=== PATIENT | male | born 1970 | race Caucasian/White ===

== ENCOUNTER → 2017-03-30 | Outpatient (CLI) | payer OTHER | LOC: LAB 12:10 | PROVIDERS: ATTEND Internal Medicine Pulmonary Disease | DX: R56.9 Unspecified convulsions (principal) | CPT/HCPCS: 36415; 80185 ==

== ENCOUNTER 2017-04-17 19:00 | Emergency (ER) | payer OTHER ==
[2017-04-17 19:48] LABS: ABSOLUTE LYMPHOCYTES (AUTO) 1.1 10^3/uL (0.5-4.7); ABSOLUTE NEUT (AUTO) 12.6 10^3/uL (1.7-8.2); BASOPHILS % (AUTO) 0.1 % (0-2); HEMATOCRIT 37.3 % (37.9-51.0); HEMOGLOBIN 12.8 g/dL (13.5-17.0); LYMPHOCYTES % (AUTO) 7.2 % (13-45); MEAN CORPUSCULAR HEMOGLOBIN 34.1 pg (27.0-33.4); MEAN CORPUSCULAR HGB CONC 34.5 g/dL (32.0-36.0); MEAN CORPUSCULAR VOLUME 99 fl (80-97); MONOCYTES % (AUTO) 12.5 % (3-13); PLATELET COUNT 276 10^3/uL (150-450); RED BLOOD COUNT 3.77 10^6/uL (4.35-5.55); RED CELL DISTRIBUTION WIDTH 12.3 % (11.5-14.0); SEGMENTED NEUTROPHILS % (AUTO) 80.2 % (42-78); TOTAL CELLS COUNTED % (AUTO) 100 %; WHITE BLOOD COUNT 15.7 10^3/uL (4.0-10.5)
[2017-04-17] MEDS ORDERED: TRAZODONE HCL 50 MG TABLET PO ONE (19:56)
--- NOTE | 2017-04-17 19:56 | ER Document Report ---
ED General - General Chief Complaint: Suicidal Ideation Stated Complaint: SUICIDAL IDEATION Time Seen by Provider: 04/17/17 19:38 Notes: Patient is a 46-year-old male with past medical history of depression currently untreated who presents with suicidal ideation. Patient went to the police department tonight and reported that he was thinking about killing himself and was subsequently transported to the emergency department. Patient reports that he found that his girlfriend is cheating on him which prompted him to want to kill himself. He reports a long-standing history of depression ever since his in 2012. He states he was prescribed Prozac in the past but discontinued this medication on his own approximately a year ago as he did not believe it was helping his symptoms. He has not made any attempt to harm himself today. He denies any homicidal ideation. He is not currently following with any mental health care provider resources. He denies any acute medical concerns. He admits to drinking heavily yesterday but denies any alcohol use today. TRAVEL OUTSIDE OF THE [place] IN LAST 30 DAYS: No - Related Data Allergies/Adverse Reactions: aspirin [Aspirin] Allergy (Verified 04/17/17 19:09) codeine [Codeine] Allergy (Verified 04/17/17 19:09) ibuprofen Allergy (Verified 04/17/17 19:09) Past Medical History - General Information source: Patient - Social History Smoking Status: Current Every Day Smoker Frequency of alcohol use: Heavy Drug Abuse: None Family History: Reviewed & Not Pertinent Patient has suicidal ideation: Yes Patient has homicidal ideation: No - Past Medical History Cardiac Medical History: Reports: Hx Hypertension Neurological Medical History: Reports: Hx Seizures Renal/ Medical History: Denies: Hx Peritoneal Dialysis Psychiatric Medical History: Reports: Hx Depression - Immunizations Hx Diphtheria, Pertussis, Tetanus Vaccination: No Review of Systems - Review of Systems Notes: Constitutional: Negative for fever. HENT: Negative for sore throat. Eyes: Negative for visual changes. Cardiovascular: Negative for chest pain. Respiratory: Negative for shortness of breath. Gastrointestinal: Negative for abdominal pain, vomiting or diarrhea. Genitourinary: Negative for dysuria. Musculoskeletal: Negative for back pain. Skin: Negative for rash. Neurological: Negative for headaches, weakness or numbness. 10 point ROS negative except as marked above and in HPI. Physical Exam - Vital signs Interpretation: Normal Notes: PHYSICAL EXAMINATION: GENERAL: Well-appearing, well-nourished and in no acute distress. HEAD: Atraumatic, normocephalic. EYES: Pupils equal round and reactive to light, extraocular movements intact, sclera anicteric, conjunctiva are normal. ENT: nares patent, oropharynx clear without exudates. Moist mucous membranes. NECK: Normal range of motion, supple without lymphadenopathy LUNGS: Breath sounds clear to auscultation bilaterally and equal. No wheezes rales or rhonchi. HEART: Regular rate and rhythm without murmurs ABDOMEN: Soft, nontender, normoactive bowel sounds. No guarding, no rebound. No masses appreciated. EXTREMITIES: Normal range of motion, no pitting or edema. No cyanosis. NEUROLOGICAL: No focal neurological deficits. Moves all extremities spontaneously and on command. PSYCH: Somewhat anxious, depressed mood. Endorsing active suicidal ideation SKIN: Warm, Dry, normal turgor, no rashes or lesions noted. Course - Re-evaluation Re-evalutation: 04/17/17 19:49 Patient presents with suicidal ideation with a plan to kill himself by hitting a shotgun shell with a hammer while it is in his mouth. Patient states he wants to and would choose to right now if he had a painless mechanism to do this by. Patient is very high risk for completion as he has no social supports , no follow-up, a plan with a lethal mechanism, and a known history of depression that is not currently being treated. I placed the patient under involuntary commitment as I do not believe he is safe for discharge and believe he will likely require inpatient hospitalization. Medical screening examination is unremarkable and he is cleared for evaluation by psychiatry. - Laboratory Result Diagrams: 04/17/17 19:30 04/17/17 19:30 Laboratory results interpreted by me: 04/17/17 04/17/17 04/17/17 19:30 19:30 19:30 WBC 15.7 H RBC 3.77 L Hgb 12.8 L Hct 37.3 L MCV 99 H MCH 34.1 H Seg Neutrophils % 80.2 H Lymphocytes % 7.2 L Absolute Neutrophils 12.6 H Absolute Monocytes 2.0 H AST 85 H ALT 74 H Urine Protein 30 H Urine Ketones TRACE H Urine Blood SMALL H Salicylates < 1.0 L Acetaminophen < 10 L - EKG Interpretation by Me Additional EKG results interpreted by me: 04/18/17 03:46 Sinus tachycardia. Rate 109. No ST elevations or depressions. QTC is 480. Discharge - Discharge Clinical Impression: Suicidal ideation Depression Qualifiers: Depression Type: unspecified Qualified Code(s): F32.9 - Major depressive disorder, single episode, unspecified Disposition: PSYCH HOSP/UNIT
[2017-04-17 20:02] LABS: ALANINE AMINOTRANSFERASE 74 U/L (21-72); ALBUMIN 4.3 g/dL (3.5-5.0); ALKALINE PHOSPHATASE 114 U/L (38-126); ANION GAP 18 (5-19); ASPARTATE AMINO TRANSFERASE 85 U/L (17-59); BILIRUBIN,DIRECT 0.1 mg/dL (0.0-0.4); BILIRUBIN,TOTAL 0.4 mg/dL (0.2-1.3); BLOOD UREA NITROGEN 18 mg/dL (7-20); CALCIUM 9.6 mg/dL (8.4-10.2); CARBON DIOXIDE 23 mmol/L (22-30); CHLORIDE 98 mmol/L (98-107); GLUCOSE 91 mg/dL (75-110); SODIUM 138.9 mmol/L (137-145); TOTAL PROTEIN 6.5 g/dL (6.3-8.2)
[2017-04-17 20:04] LABS: ACETAMINOPHEN < 10 ug/mL (10-30); ALCOHOL < 10 mg/dL (NONE DETECTED); SALICYLATE < 1.0 mg/dL (2.0-20.0)
[2017-04-17 20:07] LABS: APPEARANCE,URINE SLIGHTLY-CLOUDY; BILIRUBIN,URINE NEGATIVE (NEGATIVE); COLOR,URINE YELLOW; GLUCOSE, URINE NEGATIVE (NEGATIVE); KETONES,URINE TRACE mg/dL (NEGATIVE); LEUKOCYTE ESTERASE,URINE NEGATIVE (NEGATIVE); NITRITE,URINE NEGATIVE (NEGATIVE); PROTEIN,URINE 30 mg/dL (NEGATIVE); URINE SPECIFIC GRAVITY 1.032; UROBILINOGEN,URINE NEGATIVE mg/dL (<2.0)
[2017-04-17 20:21] LABS: URINE AMPHETAMINES SCREEN NEGATIVE; URINE BARBITURATES SCREEN NEGATIVE; URINE BENZODIAZEPINES SCREEN NEGATIVE; URINE COCAINE SCREEN NEGATIVE; URINE MARIJUANA (THC) SCREEN NEGATIVE; URINE METHADONE SCREEN NEGATIVE; URINE PHENCYCLIDINE SCREEN NEGATIVE
--- NOTE | 2017-04-18 08:00 | EKG REPORT ---
SEVERITY:- ABNORMAL ECG - SINUS TACHYCARDIA PROBABLE LEFT ATRIAL ABNORMALITY NONSPECIFIC T ABNORMALITIES, LATERAL LEADS BORDERLINE PROLONGED QT INTERVAL : Confirmed by: Sandra Patrick MD 18-Apr-2017 07:58:55
--- NOTE | 2017-04-18 12:40 | ER Document Report ---
ED General - General Chief Complaint: Suicidal Ideation Stated Complaint: SUICIDAL IDEATION Time Seen by Provider: 04/17/17 19:38 TRAVEL OUTSIDE OF THE [place] IN LAST 30 DAYS: No - Related Data Allergies/Adverse Reactions: aspirin [Aspirin] Allergy (Verified 04/17/17 19:09) codeine [Codeine] Allergy (Verified 04/17/17 19:09) ibuprofen Allergy (Verified 04/17/17 19:09) Home Medications: Current Home Medications No Home Medications 04/18/17 [History] Past Medical History - General Information source: Patient - Social History Smoking Status: Current Every Day Smoker Frequency of alcohol use: Heavy Drug Abuse: None Family History: Reviewed & Not Pertinent Patient has suicidal ideation: Yes Patient has homicidal ideation: No - Past Medical History Cardiac Medical History: Reports: Hx Hypertension Neurological Medical History: Reports: Hx Seizures Renal/ Medical History: Denies: Hx Peritoneal Dialysis Psychiatric Medical History: Reports: Hx Depression - Immunizations Hx Diphtheria, Pertussis, Tetanus Vaccination: No Physical Exam - Vital signs Vitals: Temp Pulse Resp BP Pulse Ox 98.2 F 75 16 136/77 H 99 04/18/17 05:51 04/18/17 05:51 04/18/17 05:51 04/18/17 05:51 04/18/17 05:51 Course - Re-evaluation Re-evalutation: 04/18/17 13:04 Assessed patient at 1 PM. Still actively suicidal and wants to blow up a shotgun shell in his mouth. Mental health is seen him and come up with an outpatient plan but I still feel he should be transferred to an inpatient facility. - Vital Signs Vital signs: Temp Pulse Resp BP Pulse Ox 98.2 F 75 16 136/77 H 99 04/18/17 05:51 04/18/17 05:51 04/18/17 05:51 04/18/17 05:51 04/18/17 05:51 - Laboratory Result Diagrams: 04/17/17 19:30 04/17/17 19:30 Laboratory results interpreted by me: 04/17/17 04/17/17 04/17/17 19:30 19:30 19:30 WBC 15.7 H RBC 3.77 L Hgb 12.8 L Hct 37.3 L MCV 99 H MCH 34.1 H Seg Neutrophils % 80.2 H Lymphocytes % 7.2 L Absolute Neutrophils 12.6 H Absolute Monocytes 2.0 H AST 85 H ALT 74 H Urine Protein 30 H Urine Ketones TRACE H Urine Blood SMALL H Salicylates < 1.0 L Acetaminophen < 10 L Discharge - Discharge Clinical Impression: Suicidal ideation Depression Qualifiers: Depression Type: unspecified Qualified Code(s): F32.9 - Major depressive disorder, single episode, unspecified Condition: Good Disposition: HOME, SELF-CARE
--- NOTE | 2017-04-18 12:41 | PSYCHOLOGICAL NOTE ---
Psych Note - Psych Note Psych Note: * Reason for consult: Suicidal ideation placed under IVC by attending evening physician * Consent permissions: none given Pt to ED via EMS, states he has been suicidal thought d/t girlfriend is cheating on him, states plan to but bullet in mouth and hit with hammer to kill self d/t not having access to gun, pt reports [facility]x of [facility]t depression. She reports that he walked to the police department and told them that he wanted to ; SHILPI called EMS to transport him to [facility] ED. Patient states "I just do not have anything in life or any one to live for." Patient states " this is been coming on for a long time." Patient disclosed "I lost my , I lost my mother, I lost my sister and just found out yesterday my girl friend was cheating on me." His mother and , his sister moved to [place]. Patient continued to report "I was not with anybody for a long time and the first girl I am with cheats on me." Patient disclosed he thought about jumping in front of a car; however, "I just want to hurt myself, I do not want to hurt or ruin anyone else's life." He continued to disclose that he is "scared of hurting" so decided his plan would be to get a box of shotgun shells , put a bullet in his mouth and hit it with a hammer; 'it would just create an explosion and end quickly." Patient was asked if he was afraid of hurting, what would happen if he missed with a hammer? He stated "well, I guess I would just try again .... 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 He reports that he attempted to harm himself about 5 years ago by cutting himself; clinician observes curved scar on inner left wrist. Patient states that he is diagnosed with major depression and was taking Prozac however stopped taking the medication about a year ago because "I did not think I needed it." Patient does not have an outpatient provider and states that he moved to [place] 1 week ago from [place] to be with his girlfriend. Patient states that he does have a history of alcohol abuse but "weaned" himself off of it. When patient asked if he had a place to stay he stated "I live in [place]." Patient states he is currently unemployed and is still waiting on his disability to get approved. 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 Chart review conducted: Patient received psychological evaluation on 09/02/2015 and disclosed the same stressors and trigger event he reported to clinician during todays evaluations. " Patient reports a lot of stressors in the last year to include losing his mother and his around 3 years ago. Patient reports that he was very dependent on his sister, whom moved to another state a month ago. Patient reports that on top of this, his supposed girlfriend had been cheating on him." Patient was asked about stressors and trigger he disclosed during his 2015 being identical to today's [facility] visit. Patient confirms stating, "I had a repeat year." Patient continued to confirm that it is the same girl friend from a year and a half ago. Patient agrees he needs to start medication and receive psychotherapy to learn coping skills. He reports he did follow up shortly after being discharged from [facility] for a few months. Patient is alert and orientated to person place time and circumstance. Mood is euthymic with congruent affect. Patient openly engages with clinician. Patient endorses parasuicidal ideation with a nonfatal, unrealistic plan to accomplish. Patient denies homicidal ideation. Delusions are absent behaviors congruent with intact reality based presentation i.e. organized, linear, rational thinking. Eye contact was fair. Conversational speech was within normal rate, tone and prosody. Intellectual abilities appear to be within the average range. Attention and concentration are good. Insight, judgment, impulse control are good as evidenced by patient reaching out for assistance ( i.e. going to the police station for help, coming to [facility] ED for continued assistance). 296.30 (F 33.9) major depressive disorder; recurrent episode; unspecified Impression/plan: Patient is recommended to rescind IVC. Patient endorses parasuicidal ideation with a nonfatal, unrealistic plan to accomplish (putting a shotgun shell in his mouth and hitting it with a hammer). He also states that he is "scared of hurting" which is why he came up with this plan (patient' s disclosed plan is in direct conflict with being pain free). Additionally, this appears to be a chronic issue, he received psychological evaluation on and disclosed the same stressors and trigger event he reported to clinician during today's evaluations. Patient went inpatient to [facility] after the first report and did not continue to follow up with outpatient treatment nor continue prescribed medication. Patient did demonstrate good judgment and impulse control because the patient reached out for assistance for his thoughts and feelings by going to the police station to ask for help and following through with coming to [facility] ED for continued assistance. Inpatient treatment would not be appropriate for this patient, he needs to learn coping skills through psychotherapy for his chronic stressors. The Behavior Health Team provided recommendations for medication and the patient is recommended to follow up with outpatient mental health services. Dr. Mcdonald was consulted and the care and management of this patient. Attending physician is not in agreement with recommendations.
[2017-04-18] MEDS: HYDROXYZINE HCL 10 MG TABLET PO PRN ×2 (13:29→21:07)
[2017-04-19 09:27] VITALS: BP 130/70
--- NOTE | 2017-04-19 09:48 | ER Document Report ---
ED General - General Chief Complaint: Suicidal Ideation Stated Complaint: SUICIDAL IDEATION Time Seen by Provider: 04/17/17 19:38 TRAVEL OUTSIDE OF THE U.S. IN LAST 30 DAYS: No - Related Data Allergies/Adverse Reactions: aspirin [Aspirin] Allergy (Verified 04/17/17 19:09) codeine [Codeine] Allergy (Verified 04/17/17 19:09) ibuprofen Allergy (Verified 04/17/17 19:09) Home Medications: Current Home Medications No Home Medications 04/18/17 [History] Past Medical History - General Information source: Patient - Social History Smoking Status: Current Every Day Smoker Frequency of alcohol use: Heavy Drug Abuse: None Family History: Reviewed & Not Pertinent Patient has suicidal ideation: Yes Patient has homicidal ideation: No - Past Medical History Cardiac Medical History: Reports: Hx Hypertension Neurological Medical History: Reports: Hx Seizures Renal/ Medical History: Denies: Hx Peritoneal Dialysis Psychiatric Medical History: Reports: Hx Depression - Immunizations Hx Diphtheria, Pertussis, Tetanus Vaccination: No Physical Exam - Vital signs Vitals: Temp Pulse Resp BP Pulse Ox 98.2 F 75 16 136/77 H 99 04/18/17 05:51 04/18/17 05:51 04/18/17 05:51 04/18/17 05:51 04/18/17 05:51 Course - Re-evaluation Re-evalutation: 04/19/17 09:47 As the rusting emergency physician I examined this patient. I reviewed the patient's chart. The patient is currently resting comfortably and requires no acute medical intervention. Disposition per psychiatry. - Vital Signs Vital signs: Temp Pulse Resp BP Pulse Ox 98.0 F 72 14 130/70 H 100 04/19/17 09:00 04/19/17 09:00 04/19/17 09:00 04/19/17 09:00 04/19/17 09:00 - Laboratory Result Diagrams: 04/17/17 19:30 04/17/17 19:30 Laboratory results interpreted by me: 04/17/17 04/17/17 04/17/17 19:30 19:30 19:30 WBC 15.7 H RBC 3.77 L Hgb 12.8 L Hct 37.3 L MCV 99 H MCH 34.1 H Seg Neutrophils % 80.2 H Lymphocytes % 7.2 L Absolute Neutrophils 12.6 H Absolute Monocytes 2.0 H AST 85 H ALT 74 H Urine Protein 30 H Urine Ketones TRACE H Urine Blood SMALL H Salicylates < 1.0 L Acetaminophen < 10 L Discharge - Discharge Clinical Impression: Suicidal ideation Depression Qualifiers: Depression Type: unspecified Qualified Code(s): F32.9 - Major depressive disorder, single episode, unspecified Condition: Good Disposition: HOME, SELF-CARE
--- NOTE | 2017-04-19 10:27 | PSYCHOLOGICAL NOTE ---
Psych Note - Psych Note Psych Note: * Reason for consult: Suicidal ideation placed under IVC by attending evening physician * Consent permissions: Addy, Brother Pt to ED via EMS, states he has been suicidal thought d/t girlfriend is cheating on him, states plan to but bullet in mouth and hit with hammer to kill self d/t not having access to gun, pt reports [facility]x of [facility] depression. Conducted a check in with patient: Patient stated he is "feeling better and ready to try." When asked to clarify what he would like to try, he stated "outpatient." Patient denies current suicidal ideation disclosing "I out grew them last night." Patient continued to disclose that his brother was being released from [facility] intermediate today and will be coming to the hospital to "pick me up." Patient was reminded that he can't leave without being recinded and that he is still currently under IVC. Patient confirmed he understood. Patient's brother, Addy, now at patient's bedside. He disclosed that [facility]. He states he lives in [place] however does come to [place] for work every once in a while. He continued to state that his brother and him have always helped each other he plans to get work set up for his brother. Patient stated "he has help me out in the past a lot.... He will keep me right." Patient continues state that he did not realize that his brother was going to be released from intermediate so quickly and is happy to have his support back. Patient's brother and patient confirmed they live only [place] from each other. Addy states he would like to be part of the patient's discharge plan 296.30 (F 33.9) major depressive disorder; recurrent episode; unspecified Impression/plan: Patient is recommended to rescind IVC and is considered psychiatrically clear. Patient endorses parasuicidal ideation with a nonfatal, unrealistic plan to accomplish (putting a shotgun shell in his mouth and hitting it with a hammer). He also states that he is "scared of hurting" which is why he came up with this plan (patient's disclosed plan is in direct conflict with being pain free). Additionally, this appears to be a chronic issue , he received psychological evaluation on 09/02/2015 and disclosed the same stressors and trigger event he reported to clinician during today's evaluations. Patient went inpatient to [facility] after the first report and did not continue to follow up with outpatient treatment nor continue prescribed medication. Patient did demonstrate good judgment and impulse control because the patient reached out for assistance for his thoughts and feelings by going to the police station to ask for help and following through with [facility]. Inpatient treatment would not be appropriate for this patient, he needs to learn coping skills through psychotherapy for his chronic stressors. The Behavior Health Team provided recommendations for medication and the patient is recommended to follow up with outpatient mental health services. Patient has local support with his brother. His brother was unable to support him during the last few days because he was serving time for a [place] however both patient and brother state they support each other. Patient's brother, Addy, would like to be part of patient's discharge plan to ensure patient does not have any access to weapons, parts of weapons (i.e. bullets) and medications and follows up with outpatient mental health services. Dr. Mcdonald was consulted and the care and management of this patient; attending physician is in agreement with recommendations and disposition.
== END 2017-04-19 12:35 | disposition home or self-care (01) ==
LOC: ER 19:00
DX: R45.851 Suicidal ideations (principal); F33.9 Major depressive disorder, recurrent, unspecified; F17.200 Nicotine dependence, unspecified, uncomplicated; I10 Essential (primary) hypertension; Z88.6 Allergy status to analgesic agent
CPT/HCPCS: 93005; 99285; 36415; 80307 ×4; 85025; 80053; 81001; 93010; J3490

== ENCOUNTER 2017-04-21 23:39 | Emergency (ER) | payer MEDICAID, OTHER ==
--- NOTE | 2017-04-21 23:55 | ER Document Report ---
ED Psych Disorder / Suicide - General Chief Complaint: Suicidal Ideation Stated Complaint: SUICIDAL IDEATION Time Seen by Provider: 04/21/17 23:55 Notes: Pt states that he is here because he has thoughts to hurt himself. States that he was released with behavioral health from last Saturday and signed a contract saying that if he wants to hurt himself he needs to check in with the ED. States that he was going to hang himself today and that he has everything at home to do it. States that he even has the tree picked out that he would use. States that he hasn't had his meds filled and this is probably part of the problem. [facility], but he has not picked it up. Patient drank a 40 ounce beer earlier tonight. Denies any suicidal gesture, HI, hallucinations, fevers, headache, nausea or vomiting. TRAVEL OUTSIDE OF THE [place] IN LAST 30 DAYS: No - Related Data Allergies/Adverse Reactions: aspirin [Aspirin] Allergy (Verified 04/21/17 23:39) codeine [Codeine] Allergy (Verified 04/21/17 23:39) ibuprofen Allergy (Verified 04/21/17 23:39) Past Medical History - General Information source: Patient - Social History Smoking Status: Current Every Day Smoker Frequency of alcohol use: Heavy Drug Abuse: None Family History: Reviewed & Not Pertinent - Past Medical History Cardiac Medical History: Reports: Hx Hypertension Neurological Medical History: Reports: Hx Seizures Renal/ Medical History: Denies: Hx Peritoneal Dialysis Psychiatric Medical History: Reports: Hx Depression - Immunizations Hx Diphtheria, Pertussis, Tetanus Vaccination: No Review of Systems - Review of Systems Notes: REVIEW OF SYSTEMS: CONSTITUTIONAL: -fevers, -chills EENT: -eye pain, -difficulty swallowing, -nasal congestion CARDIOVASCULAR:-chest pain, -syncope. RESPIRATORY: -cough, -SOB GASTROINTESTINAL: -abdominal pain, - nausea, -vomiting, -diarrhea GENITOURINARY: -dysuria, -hematuria MUSCULOSKELETAL: -back pain, -neck pain SKIN: -rash or skin lesions. HEMATOLOGIC: -easy bruising or bleeding. LYMPHATIC: -swollen, enlarged glands. NEUROLOGICAL: -altered mental status or loss of consciousness, -headache, - neurologic symptoms PSYCHIATRIC: -anxiety, +depression, +suicidal thoughts ALL OTHER SYSTEMS REVIEWED AND NEGATIVE. Physical Exam - Vital signs Vitals: Temp Pulse Resp BP Pulse Ox 99.0 F 121 H 20 143/87 H 96 04/21/17 23:41 04/21/17 23:41 04/21/17 23:41 04/21/17 23:41 04/21/17 23:41 - Notes Notes: PHYSICAL EXAMINATION: GENERAL: Well-appearing, well-nourished and in no acute distress. HEAD: Atraumatic, normocephalic. EYES: Pupils equal round and reactive to light, extraocular movements intact, sclera anicteric, conjunctiva are normal. ENT: nares patent, oropharynx clear without exudates. Moist mucous membranes. NECK: Normal range of motion, supple without lymphadenopathy LUNGS: Breath sounds clear to auscultation bilaterally and equal. No wheezes rales or rhonchi. HEART: Regular rate and rhythm without murmurs ABDOMEN: Soft, nontender, normoactive bowel sounds. No guarding, no rebound. No masses appreciated. EXTREMITIES: Normal range of motion, no pitting or edema. No cyanosis. NEUROLOGICAL: Cranial nerves grossly intact. Normal speech, normal gait. Normal sensory and motor exams. PSYCH: Suicidal thoughts. Cooperative. SKIN: Warm, Dry, normal turgor, no rashes or lesions noted. Course - Re-evaluation Re-evalutation: 04/22/17 00:04 Pt continues to have suicidal thoughts with a new plan of hanging himself. He agrees to stay overnight and speak to mental health in the morning. He has not been to the pharmacy to filler picker his Prozac prescription yet. We will provide him with a dose today. He is also requesting Tylenol for his chronic back pain. No red flag signs for low back pain at this time. - Vital Signs Vital signs: Temp Pulse Resp BP Pulse Ox 99.0 F 121 H 20 143/87 H 96 04/21/17 23:41 04/21/17 23:41 04/21/17 23:41 04/21/17 23:41 04/21/17 23:41 - Laboratory Result Diagrams: 04/22/17 00:05 04/22/17 00:05 - EKG Interpretation by Me EKG shows normal: Sinus rhythm, [place], QRS Complexes, ST-T Waves Additional EKG results interpreted by me: QTc 513. Discharge - Discharge Clinical Impression: Suicidal thoughts Condition: Stable Disposition: PSYCH HOSP/UNIT
[2017-04-22] MEDS ORDERED: ACETAMINOPHEN 325 MG TABLET PO PRN (00:30)
[2017-04-22] MEDS ORDERED: FLUOXETINE HCL 20 MG CAPSULE PO ONE (00:31)
[2017-04-22 00:32] LABS: ABSOLUTE EOSINOPHILS # (AUTO) 0.1 10^3/uL (0.0-0.6); ABSOLUTE LYMPHOCYTES (AUTO) 3.3 10^3/uL (0.5-4.7); ABSOLUTE MONOCYTES (AUTO) 0.8 10^3/uL (0.1-1.4); ABSOLUTE NEUT (AUTO) 5.3 10^3/uL (1.7-8.2); BASOPHILS % (AUTO) 0.3 % (0-2); HEMATOCRIT 36.5 % (37.9-51.0); HEMOGLOBIN 12.4 g/dL (13.5-17.0); LYMPHOCYTES % (AUTO) 34.6 % (13-45); MEAN CORPUSCULAR HEMOGLOBIN 34.2 pg (27.0-33.4); MEAN CORPUSCULAR HGB CONC 34.1 g/dL (32.0-36.0); MEAN CORPUSCULAR VOLUME 100 fl (80-97); MONOCYTES % (AUTO) 8.2 % (3-13); PLATELET COUNT 238 10^3/uL (150-450); RED BLOOD COUNT 3.64 10^6/uL (4.35-5.55); RED CELL DISTRIBUTION WIDTH 12.3 % (11.5-14.0); SEGMENTED NEUTROPHILS % (AUTO) 55.9 % (42-78); TOTAL CELLS COUNTED % (AUTO) 100 %; WHITE BLOOD COUNT 9.5 10^3/uL (4.0-10.5)
[2017-04-22 01:15] LABS: AMORPHOUS SEDIMENT,URINE TRACE /HPF; APPEARANCE,URINE CLEAR; BILIRUBIN,URINE NEGATIVE (NEGATIVE); COLOR,URINE YELLOW; GLUCOSE, URINE NEGATIVE (NEGATIVE); KETONES,URINE NEGATIVE (NEGATIVE); LEUKOCYTE ESTERASE,URINE NEGATIVE (NEGATIVE); NITRITE,URINE NEGATIVE (NEGATIVE); PROTEIN,URINE NEGATIVE (NEGATIVE); URINE SPECIFIC GRAVITY 1.005; UROBILINOGEN,URINE NEGATIVE mg/dL (<2.0)
[2017-04-22 01:20] LABS: ALANINE AMINOTRANSFERASE 67 U/L (21-72); ALCOHOL 155 mg/dL (NONE DETECTED); ALKALINE PHOSPHATASE 87 U/L (38-126); ANION GAP 14 (5-19); ASPARTATE AMINO TRANSFERASE 46 U/L (17-59); BILIRUBIN,DIRECT 0.2 mg/dL (0.0-0.4); BILIRUBIN,TOTAL 0.4 mg/dL (0.2-1.3); BLOOD UREA NITROGEN 13 mg/dL (7-20); CALCIUM 9.4 mg/dL (8.4-10.2); CARBON DIOXIDE 26 mmol/L (22-30); CHLORIDE 100 mmol/L (98-107); GLUCOSE 107 mg/dL (75-110); POTASSIUM 3.7 mmol/L (3.6-5.0); SODIUM 140.3 mmol/L (137-145); TOTAL PROTEIN 6.5 g/dL (6.3-8.2)
[2017-04-22 01:21] LABS: ACETAMINOPHEN < 10 ug/mL (10-30); SALICYLATE < 1.0 mg/dL (2.0-20.0)
--- NOTE | 2017-04-22 09:16 | ER Document Report ---
Doctor's Note Notes: 04/22/17 09:15 This is a 46-year-old man who presents to the emergency room with suicidal ideations and a plan. He states that he felt quite bad last night precipitating his arrival to the emergency room. He states he feels much better now and he does not have a plan for killing himself. I did discuss with him the issue of taking his medicine (he does have a prescription for Prozac) and the need to attend outpatient counseling. He is been given resource numbers for outpatient counseling as well as homeless shelters. He states that he does "have a place to stay". He does not exhibit any acute psychosis, is not delusional and is not have any hallucinations. He appears competent at this time. 04/22/17 09:42
--- NOTE | 2017-04-22 10:11 | PSYCHOLOGICAL NOTE ---
Psych Note - Psych Note Psych Note: Reason for consult: Suicidal ideation Consent permissions: None Given Patient is a 46 year old male who presented to the Emergency Department with suicidal ideation. Patient stated he wanted to hang himself. Patient reported he had "picked out the tree, just haven't bought the rope." Patient stated he was "just here Saturday." Patient reported he was given a prescription for Prozac 20mg but he has not filled it at this time. Patient reported he has not followed up with the outpatient provider he was given a referral to or attempted to contact [facility] since his discharge on 04/17/2018. Patient reported he is "so depressed" and continues to deal with the loss of his mother in 2012 and his in 2013. He reported his of a methadone overdose. Patient stated she was "a drinker" and a male friend of hers got her to start taking methadone and she accidentally overdosed on it. Patient stated he is also having ongoing issues with his current girlfriend as she has cheated on him. Patient stated "this is not my first rodeo with wanting to hurt myself. " Patient indicated he had not followed up with a provider because he wasn't sure if he was going to stay in this area or move back to [facility]. Patient indicated he has been staying in a [address] and considers himself homeless since his 's in 2013. He reported he has been "couch surfing " and does not have a consistent residence. This provider enquired about contacting the patient's [id number], who he was discharged to on 04/17/2017 and the patient indicated he and the [id number] have had a "falling out." Patient was not forthcoming about the circumstances of the falling out only saying they had a disagreement about "family issues." Patient stated he doesn't want to be in this hospital but thinks he needs a "stable environment to get stable on meds." Patient endorsed need for inpatient hospitalization. Patient reported he has been hospitalized twice for suicidal ideation, once at [place] (August 2015) and once at [facility] (2013). Patient also reported he has been to detox twice at [facility]. Patient stated he doesn't feel like he needs alcohol detox or rehabilitation. He stated he feels he has more of a "mental health" issue versus a substance abuse issue. Patient reported he drinks approximately twice a week and usually drinks a 40 oz. beer when he drinks. Patient denied drug use. Patient denied a family history of mental health issues or alcohol/drug abuse. Patient is alert and oriented to person, place, time and circumstance. Mood was subdued and affect was congruent. Patient denied visual/auditory hallucinations. No delusions or psychosis noted. Thought processed were linear, rational and organized. Conversational speech was within normal limits for rate , tone and prosody. Intellectual abilities were estimated within average range. Attention and concentration were within normal limits. Insight, judgment and impulse control were fair. Patient was observed to be calm and relaxed unless confronted about not filling his medication or following up with a provider at which time he appeared somewhat agitated. 1. 296.30 (F 33.9) Major Depressive Disorder; recurrent episode; unspecified Impression/plan: Patient is psychiatrically clear. Patient does not meet [place] G.S[place] criteria for IVC. Patient endorses passive suicidal ideation without means (does not have a rope and has not purchased a rope) and it is not felt that he is a danger to himself or others at this time. Additionally, this appears to be a chronic issue, he received psychological evaluation on 09/02/2015 as well as 04/17/2017 and endorsed the same stressors he reported to this provider during today's evaluations. Patient has not followed up with outpatient treatment nor prescribed medication. Patient would benefit from follow through with recommended outpatient services to learn coping skills through psychotherapy for his chronic stressors and adherence to prescribed medications. Dr. Mcdonald was consulted and the care and management of this patient. Emergency Department physician is in agreement with recommendation and disposition.
[2017-04-22 10:51] VITALS: BP 150/98
--- NOTE | 2017-04-23 09:37 | EKG REPORT ---
SEVERITY:- ABNORMAL ECG - SINUS RHYTHM BORDERLINE T ABNORMALITIES, ANT-LAT LEADS PROLONGED QT INTERVAL : Confirmed by: Yadiel uBtler 23-Apr-2017 09:36:23
== END 2017-04-22 11:03 | disposition home or self-care (01) ==
LOC: ER 23:39
DX: F32.9 Major depressive disorder, single episode, unspecified (principal); Z79.899 Other long term (current) drug therapy; F17.200 Nicotine dependence, unspecified, uncomplicated
CPT/HCPCS: 93005; 99285; 36415; 80307 ×3; 85025; 80053; 81001; 93010; J3490 ×2

== ENCOUNTER 2017-04-30 19:40 | Emergency (ER) | payer MEDICAID ==
--- NOTE | 2017-04-30 21:58 | ER Document Report ---
ED Medical Screen (RME) - General Mode of Arrival: Ambulatory Information source: Patient TRAVEL OUTSIDE OF THE [place] IN LAST 30 DAYS: No <EDWIN CARLISLE - Last Filed: 04/30/17 23:05> <TAMMI HOOK - Last Filed: 04/30/17 23:09> - General Chief Complaint: Flank Pain Stated Complaint: ABDOMINAL PAIN Time Seen by Provider: 04/30/17 21:47 Notes: Patient is a 46 year old male presenting to the emergency department complaining of bilateral flank pain onset 1 week ago. Patient states the pain has gotten progressively worse over the week. Patient states the pain is so bad he can hardly move. Patient denies numbness, dysuria, hematuria, fevers, or urinary frequency. Patient is agitated upon assessment. I have greeted and performed a rapid initial assessment of this patient. A comprehensive ED assessment and evaluation of the patient, analysis of test results and completion of the medical decision making process will be conducted by additional ED providers. (EDWIN CARLISLE) - Related Data Allergies/Adverse Reactions: aspirin [Aspirin] Allergy (Verified 04/21/17 23:39) codeine [Codeine] Allergy (Verified 04/21/17 23:39) ibuprofen Allergy (Verified 04/21/17 23:39) Past Medical History - General Information source: Patient - Social History Cigarette use (# per day): Yes Frequency of alcohol use: Social Drug Abuse: None - Past Medical History Cardiac Medical History: Reports: Hx Hypertension Neurological Medical History: Reports: Hx Seizures Psychiatric Medical History: Reports: Hx Depression - Immunizations Hx Diphtheria, Pertussis, Tetanus Vaccination: No <EDWIN CARLISLE - Last Filed: 04/30/17 23:05> Review of Systems - Review of Systems Constitutional: No symptoms reported EENT: No symptoms reported Cardiovascular: No symptoms reported Respiratory: No symptoms reported Gastrointestinal: No symptoms reported Genitourinary: See HPI, Flank pain - bilateral Male Genitourinary: No symptoms reported Musculoskeletal: No symptoms reported Skin: No symptoms reported Hematologic/Lymphatic: No symptoms reported Neurological/Psychological: No symptoms reported -: Yes All other systems reviewed and negative <EDWIN CARLISLE - Last Filed: 04/30/17 23:05> Physical Exam <EDWIN CARLISLE - Last Filed: 01/09/18 23:05> <TAMMI HOOK - Last Filed: 04/30/17 23:09> - Vital signs Vitals: Temp Pulse Resp BP Pulse Ox 99.3 F 110 H 20 110/79 95 04/30/17 19:54 04/30/17 19:54 04/30/17 19:54 04/30/17 19:54 04/30/17 19:54 - Notes Notes: GENERAL: Alert, interacts well. No acute distress. LUNGS: Clear to auscultation bilaterally, no wheezes, rales, or rhonchi. No respiratory distress. HEART: Regular rate and rhythm. No murmurs, gallops, or rubs. ABDOMEN: Soft, non-tender. Non-distended. Bowel sounds present in all 4 quadrants. BACK: Tender to palpation in the soft tissue above the sacroiliac joints and wings. EXTREMITIES: Able to stand, able to walk. (EDWIN CARLISLE) Course - Laboratory Result Diagrams: 04/30/17 22:18 04/30/17 22:18 <EDWIN CARLISLE - Last Filed: 04/30/17 23:05> - Laboratory Result Diagrams: 04/30/17 22:18 04/30/17 22:18 <TAMMI HOOK - Last Filed: 04/30/17 23:09> - Vital Signs Vital signs: Temp Pulse Resp BP Pulse Ox 99.3 F 110 H 20 110/79 95 04/30/17 19:54 04/30/17 19:54 04/30/17 19:54 04/30/17 19:54 04/30/17 19:54 - Laboratory Laboratory results interpreted by me: 04/30/17 04/30/17 04/30/17 19:53 22:18 22:18 RBC 3.64 L Hgb 12.8 L Hct 37.1 L MCV 102 H MCH 35.2 H RDW 14.1 H Monocytes % 13.4 H AST 76 H Urine Urobilinogen 2.0 H Scribe Documentation - Scribe Written by Galindo:: Galindo Sams, 04/30/2017 21:58 acting as scribe for :: Tobias <EDWIN CARLISLE - Last Filed: 04/30/17 23:05>
[2017-04-30] MEDS ORDERED: OXYCODONE-ACETAMINOPHEN 5-325 MG TABLET PO ONE (22:01)
[2017-04-30 22:02] LABS: APPEARANCE,URINE CLEAR; BILIRUBIN,URINE NEGATIVE (NEGATIVE); COLOR,URINE YELLOW; GLUCOSE, URINE NEGATIVE (NEGATIVE); KETONES,URINE NEGATIVE (NEGATIVE); LEUKOCYTE ESTERASE,URINE NEGATIVE (NEGATIVE); NITRITE,URINE NEGATIVE (NEGATIVE); PROTEIN,URINE NEGATIVE (NEGATIVE)
[2017-04-30 22:28] LABS: ABSOLUTE LYMPHOCYTES (AUTO) 1.9 10^3/uL (0.5-4.7); ABSOLUTE MONOCYTES (AUTO) 0.8 10^3/uL (0.1-1.4); BASOPHILS % (AUTO) 0.5 % (0-2); EOSINOPHILS % (AUTO) 0.3 % (0-6); HEMATOCRIT 37.1 % (37.9-51.0); HEMOGLOBIN 12.8 g/dL (13.5-17.0); LYMPHOCYTES % (AUTO) 33.1 % (13-45); MEAN CORPUSCULAR HEMOGLOBIN 35.2 pg (27.0-33.4); MEAN CORPUSCULAR HGB CONC 34.6 g/dL (32.0-36.0); MEAN CORPUSCULAR VOLUME 102 fl (80-97); MONOCYTES % (AUTO) 13.4 % (3-13); PLATELET COUNT 327 10^3/uL (150-450); RED BLOOD COUNT 3.64 10^6/uL (4.35-5.55); RED CELL DISTRIBUTION WIDTH 14.1 % (11.5-14.0); SEGMENTED NEUTROPHILS % (AUTO) 52.7 % (42-78); TOTAL CELLS COUNTED % (AUTO) 100 %; WHITE BLOOD COUNT 5.6 10^3/uL (4.0-10.5)
[2017-04-30 22:38] LABS: ALANINE AMINOTRANSFERASE 48 U/L (21-72); ALBUMIN 4.1 g/dL (3.5-5.0); ALKALINE PHOSPHATASE 78 U/L (38-126); ANION GAP 13 (5-19); ASPARTATE AMINO TRANSFERASE 76 U/L (17-59); BILIRUBIN,DIRECT 0.2 mg/dL (0.0-0.4); BILIRUBIN,TOTAL 0.5 mg/dL (0.2-1.3); BLOOD UREA NITROGEN 20 mg/dL (7-20); CARBON DIOXIDE 25 mmol/L (22-30); CHLORIDE 104 mmol/L (98-107); GLUCOSE 101 mg/dL (75-110); LIPASE 299.4 U/L (23-300); POTASSIUM 4.4 mmol/L (3.6-5.0); SODIUM 141.5 mmol/L (137-145); TOTAL PROTEIN 6.5 g/dL (6.3-8.2)
[2017-04-30] MEDS ORDERED: METHOCARBAMOL 750 MG TABLET PO ONE (22:58)
[2017-04-30] MEDS ORDERED: ACETAMINOPHEN 325 MG TABLET PO ONE (22:58)
--- NOTE | 2017-04-30 23:25 | ER Document Report ---
ED General - General Chief Complaint: Flank Pain Stated Complaint: ABDOMINAL PAIN Time Seen by Provider: 04/30/17 21:47 Mode of Arrival: Ambulatory Notes: Patient is a 38-year-old male who presents with complaints of pain over his lower back. He says he thinks is his kidneys even though he does not have a history of any kidney issues. He is an alcoholic. He denies any recent fevers or vomiting or diarrhea. Pain is been there for a week. Is worse with certain movements. No pain rating down his legs. No dysuria. No blood in his urine. No fevers. No other complaints at this time. No abdominal pain. - Related Data Allergies/Adverse Reactions: aspirin [Aspirin] Allergy (Verified 04/21/17 23:39) codeine [Codeine] Allergy (Verified 04/21/17 23:39) ibuprofen Allergy (Verified 04/21/17 23:39) Past Medical History - General Information source: Patient - Social History Smoking Status: Current Every Day Smoker Cigarette use (# per day): Yes Frequency of alcohol use: Heavy Drug Abuse: None Family History: Reviewed & Not Pertinent Patient has suicidal ideation: No Patient has homicidal ideation: No - Past Medical History Cardiac Medical History: Reports: Hx Hypertension Neurological Medical History: Reports: Hx Seizures Renal/ Medical History: Denies: Hx Peritoneal Dialysis Psychiatric Medical History: Reports: Hx Depression - Immunizations Hx Diphtheria, Pertussis, Tetanus Vaccination: No Review of Systems - Review of Systems Notes: My Normal Review Basic REVIEW OF SYSTEMS: CONSTITUTIONAL : Denies fever, chills, or sweats. Denies recent illness. EENT: Denies eye, ear, throat, or mouth pain or symptoms. Denies nasal or sinus congestion. CARDIOVASCULAR: Denies chest pain. RESPIRATORY: Denies cough, cold, or chest congestion. Denies shortness of breath, difficulty breathing, or wheezing. GASTROINTESTINAL: Denies abdominal pain. Denies nausea, vomiting, or diarrhea. GENITOURINARY: Denies difficulty urinating, painful urination, burning, frequency, or blood in urine. MUSCULOSKELETAL: low back pain. SKIN: Denies rash or skin lesions. NEUROLOGICAL: Denies altered mental status or loss of consciousness. Denies headache. Denies weakness or paralysis or loss of use of either side. Denies problems with gait or speech. Denies sensory or motor loss. ALL OTHER SYSTEMS REVIEWED AND NEGATIVE. Physical Exam - Vital signs Vitals: Temp Pulse Resp BP Pulse Ox 99.3 F 110 H 20 110/79 95 04/30/17 19:54 04/30/17 19:54 04/30/17 19:54 04/30/17 19:54 04/30/17 19:54 - Notes Notes: General Appearance: Well nourished, alert, cooperative, no acute distress, no obvious discomfort. Vitals: reviewed, See vital signs table. Head: no swelling or tenderness to the head Eyes: PERRL, EOMI, Conjuctiva clear Mouth: No decreasd moisture Lungs: No wheezing, No rales, No rhonci, No accessory muscle use, good air exchange bilaterally. Heart: Normal rate, Regular rythm, No murmur, no rub Abdomen: Normal BS, soft, No rigidity, No abdominal tenderness, No guarding, no rebound, Genital: no swelling of genitalia Back: When I push on the patient's lower back he says that the pushing will not make it worse; however, every time I push anywhere near the lumbosacral junction the patient jumps and says "ouch". No redness or swelling to the back. Extremities: strength 5/5 in all extremities, good pulses in all extremities, no swelling or tenderness in the extremities, no edema. Skin: warm, dry, appropriate color, no rash Neuro: speech clear, oriented x 3, normal affect, responds appropriately to questions. Distal sensation intact. Normal Gait. Good strength in lower extremities. Course - Re-evaluation Re-evalutation: 05/01/17 05:53 Patient blood work is negative. Is no evident signs of any complications with his kidneys. His urine shows no evidence of infection. His ultrasound shows no evidence of hydronephrosis. Patient then mentions later that this could be related to his elephantiasis. He says had this twice before. I told his unlikely being that the pain is in his back and that he has absolutely no swelling over his genital region. I suspect this is more likely pain related to his lumbosacral joint. I suspect this because every time I push over his lumbosacral joint he jumps with pain. Will place him on anti-inflammatories as well as prednisone. I encouraged him to follow-up with a physician in 2 to 3 days for reevaluation. I encouraged her return to ER immediately if he has any pain rating down his legs, weakness, fevers, numbness into extremities, or worsening pain. I do not suspect cauda equina syndrome and that the patient has no loss of bowel control, no urinary retention, no weakness or numbness in his legs, and he has normal gait. Dictation of this chart was performed using voice recognition software; therefore, there may be some unintended grammatical errors. - Vital Signs Vital signs: Temp Pulse Resp BP Pulse Ox 99 F 100 22 H 111/74 96 05/01/17 02:00 05/01/17 02:00 05/01/17 02:00 05/01/17 02:00 05/01/17 02:00 - Laboratory Result Diagrams: 04/30/17 22:18 04/30/17 22:18 Laboratory results interpreted by me: 04/30/17 04/30/17 04/30/17 19:53 22:18 22:18 RBC 3.64 L Hgb 12.8 L Hct 37.1 L MCV 102 H MCH 35.2 H RDW 14.1 H Monocytes % 13.4 H AST 76 H Urine Urobilinogen 2.0 H Discharge - Discharge Clinical Impression: Back pain Qualifiers: Back pain location: low back pain Chronicity: acute Back pain laterality: bilateral Sciatica presence: without sciatica Qualified Code(s): M54.5 - Low back pain Condition: Good Disposition: HOME, SELF-CARE Additional Instructions: PLease take the medicine as prescribed. Also take 500mg of Tylenol every 4 hours. Please follow up with a doctor in 3-4 days for reevaluation. please return to the ER if you have fevers, worsening of your pain, abdominal pain, or if you feel unwell. Prescriptions: Methocarbamol [Robaxin 500 mg Tablet] 500 mg PO BID #14 tablet Prednisone 10 mg PO ASDIR #42 tablet Forms: Return to Work
--- NOTE | 2017-05-01 01:30 | RADIOLOGY REPORT (SQ) ---
EXAM DESCRIPTION: U/S RETROPERITON (RENAL/AORTA) CLINICAL HISTORY: back pain, look at kidneys and aorta please COMPARISON: None. TECHNIQUE: Real-time sonographic images of the retroperitoneum were obtained using a curved multihertz transducer. FINDINGS: No abnormalities of the aorta or IVC. The proximal aorta measures 2.4 cm by my measurement. Mid aorta measures 1.8 cm. Distal aorta measures 1.8 cm. Right common iliac artery measures 1.0 cm. Left common iliac artery measures 1.0 cm. The right kidney measures 10.2 cm in length. The left kidney measures 9.6 cm in length. No solid renal mass, shadowing renal calculi, or hydronephrosis. Urinary bladder is not distended. IMPRESSION: 1. No sonographic abnormality identified in the kidneys. 2. No evidence of abdominal aortic aneurysm.
[2017-05-01 02:17] VITALS: BP 111/74
== END 2017-05-01 02:10 | disposition home or self-care (01) ==
LOC: ER 19:40
DX: M54.5 Low back pain (principal); R10.9 Unspecified abdominal pain
CPT/HCPCS: 99284; 36415; 83690; 85025; 80053; 81001; 76770; J3490 ×2

== ENCOUNTER 2017-05-01 16:44 | Emergency (ER) | payer MEDICAID ==
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
[2017-05-01 17:52] LABS: ABSOLUTE LYMPHOCYTES (AUTO) 1.5 10^3/uL (0.5-4.7); ABSOLUTE MONOCYTES (AUTO) 0.9 10^3/uL (0.1-1.4); ABSOLUTE NEUT (AUTO) 2.3 10^3/uL (1.7-8.2); BASOPHILS % (AUTO) 0.7 % (0-2); EOSINOPHILS % (AUTO) 0.5 % (0-6); HEMATOCRIT 37.7 % (37.9-51.0); HEMOGLOBIN 12.9 g/dL (13.5-17.0); LYMPHOCYTES % (AUTO) 32.2 % (13-45); MEAN CORPUSCULAR HGB CONC 34.3 g/dL (32.0-36.0); MEAN CORPUSCULAR VOLUME 102 fl (80-97); MONOCYTES % (AUTO) 18.8 % (3-13); PLATELET COUNT 315 10^3/uL (150-450); RED BLOOD COUNT 3.69 10^6/uL (4.35-5.55); RED CELL DISTRIBUTION WIDTH 14.8 % (11.5-14.0); SEGMENTED NEUTROPHILS % (AUTO) 47.8 % (42-78); TOTAL CELLS COUNTED % (AUTO) 100 %; WHITE BLOOD COUNT 4.8 10^3/uL (4.0-10.5)
[2017-05-01 18:08] LABS: ALANINE AMINOTRANSFERASE 68 U/L (21-72); ALBUMIN 3.8 g/dL (3.5-5.0); ALKALINE PHOSPHATASE 84 U/L (38-126); ANION GAP 13 (5-19); ASPARTATE AMINO TRANSFERASE 145 U/L (17-59); BILIRUBIN,DIRECT 0.3 mg/dL (0.0-0.4); BILIRUBIN,TOTAL 0.4 mg/dL (0.2-1.3); BLOOD UREA NITROGEN 22 mg/dL (7-20); CALCIUM 8.7 mg/dL (8.4-10.2); CARBON DIOXIDE 28 mmol/L (22-30); CHLORIDE 103 mmol/L (98-107); GLUCOSE 125 mg/dL (75-110); POTASSIUM 3.9 mmol/L (3.6-5.0); SODIUM 143.5 mmol/L (137-145); TOTAL PROTEIN 6.1 g/dL (6.3-8.2)
[2017-05-01 18:21] LABS: ACETAMINOPHEN < 10 ug/mL (10-30); SALICYLATE < 1.0 mg/dL (2.0-20.0)
[2017-05-01 18:24] LABS: ALCOHOL 367 mg/dL (NONE DETECTED)
[2017-05-01 18:55] LABS: APPEARANCE,URINE CLEAR; BILIRUBIN,URINE NEGATIVE (NEGATIVE); COLOR,URINE YELLOW; GLUCOSE, URINE NEGATIVE (NEGATIVE); KETONES,URINE NEGATIVE (NEGATIVE); LEUKOCYTE ESTERASE,URINE NEGATIVE (NEGATIVE); NITRITE,URINE NEGATIVE (NEGATIVE); PROTEIN,URINE NEGATIVE (NEGATIVE); URINE SPECIFIC GRAVITY 1.015; UROBILINOGEN,URINE NEGATIVE mg/dL (<2.0)
[2017-05-01 19:02] LABS: URINE AMPHETAMINES SCREEN NEGATIVE; URINE BARBITURATES SCREEN NEGATIVE; URINE BENZODIAZEPINES SCREEN NEGATIVE; URINE COCAINE SCREEN NEGATIVE; URINE MARIJUANA (THC) SCREEN NEGATIVE; URINE METHADONE SCREEN NEGATIVE; URINE PHENCYCLIDINE SCREEN NEGATIVE
[2017-05-02] MEDS ORDERED: LANSOPRAZOLE 30 MG TAB.RAP.DR PO ONE ×2 (04:01→08:00)
[2017-05-02] MEDS ORDERED: ONDANSETRON 4 MG TAB.RAPDIS PO ONE ×2 (04:01→08:00)
--- NOTE | 2017-05-02 08:07 | EKG REPORT ---
SEVERITY:- BORDERLINE ECG - SINUS RHYTHM BORDERLINE PROLONGED QT INTERVAL : Confirmed by: Andrew Cedillo MD 02-May-2017 08:06:27
[2017-05-02 09:10] VITALS: BP 125/75
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
--- NOTE | 2017-05-02 11:11 | ER Document Report ---
Doctor's Note Notes: 05/02/17 11:09 Mental health knows patient well. Spoke with Dr. Mcdonald who knows patient well. Nothing further to offer at this time. Offered detox ,and treatment but denies help. Will d/c/
== END 2017-05-02 11:44 | disposition home or self-care (01) ==
LOC: ER 16:44
DX: R45.851 Suicidal ideations (principal); F10.920 Alcohol use, unspecified with intoxication, uncomplicated; F33.9 Major depressive disorder, recurrent, unspecified; F17.200 Nicotine dependence, unspecified, uncomplicated; I10 Essential (primary) hypertension; Z88.6 Allergy status to analgesic agent; Z59.0 Homelessness
CPT/HCPCS: 93005; 99285; 36415; 80307 ×4; 85025; 80053; 81001; 93010; S0119

== ENCOUNTER 2017-09-01 18:48 | Emergency (ER) | payer SELFPAY ==
[2017-09-01] MEDS ORDERED: RINGERS SOLUTION,LACTATED 1,000 ML IV ONE (19:06)
--- NOTE | 2017-09-01 19:09 | ER Document Report ---
ED Medical Screen (RME) - General Chief Complaint: Headache Stated Complaint: HEADACHES Time Seen by Provider: 09/01/17 18:58 Notes: RAPID MEDICAL EVALUATION DISCLOSURE I have seen this patient as part of a Rapid Medical Evaluation and, if applicable, placed any initially appropriate orders. The patient will be seen and fully evaluated, including a full history and physical exam, by a provider ( in Main ED or Fast Track) when a room becomes available. 46-year-old male PMH brain abscess status post drainage at [place] several years ago here with complaints of persistent headache for the past 1 week and intermittent right arm numbness/tingling. He notes that "I will get a headache every once in a while" but that since he has been in residential and has been quite persistent. Since he is no longer in residential, he came here for evaluation. He has not been taking anything for the pain while in residential but had tried drinking caffeinated coffee with minimal relief. He is concerned that he may be having another brain abscess. EXAM Mild to moderate tachycardia, high 110s Strength 5/5 with intact sensation upper/lower extremities NOTE Pain medication not given to prevent blunting of neurological exam TRAVEL OUTSIDE OF THE [place] IN LAST 30 DAYS: No - Related Data Allergies/Adverse Reactions: aspirin [Aspirin] Allergy (Verified 05/01/17 16:53) codeine [Codeine] Allergy (Verified 05/01/17 16:53) ibuprofen Allergy (Verified 05/01/17 16:53) Past Medical History - Past Medical History Cardiac Medical History: Reports: Hx Hypertension Neurological Medical History: Reports: Hx Seizures Renal/ Medical History: Denies: Hx Peritoneal Dialysis Psychiatric Medical History: Reports: Hx Depression Past Surgical History: Reports: Other - Brain surgery 2014 - Immunizations Hx Diphtheria, Pertussis, Tetanus Vaccination: No Physical Exam - Vital signs Vitals: Temp Pulse Resp BP Pulse Ox 98.7 F 117 H 17 141/95 H 96 09/01/17 18:52 09/01/17 18:52 09/01/17 18:52 09/01/17 18:52 09/01/17 18:52 Course - Vital Signs Vital signs: Temp Pulse Resp BP Pulse Ox 98.7 F 117 H 17 141/95 H 96 09/01/17 18:52 09/01/17 18:52 09/01/17 18:52 09/01/17 18:52 09/01/17 18:52
[2017-09-01] MEDS ORDERED: PROCHLORPERAZINE EDISYLATE INJ 10 MG/2 ML VIAL IV ONE (20:02)
[2017-09-01 20:07] LABS: ABSOLUTE LYMPHOCYTES (AUTO) 2.5 10^3/uL (0.5-4.7); ABSOLUTE MONOCYTES (AUTO) 1.3 10^3/uL (0.1-1.4); ABSOLUTE NEUT (AUTO) 7.3 10^3/uL (1.7-8.2); BASOPHILS % (AUTO) 0.3 % (0-2); EOSINOPHILS % (AUTO) 0.3 % (0-6); HEMATOCRIT 38.8 % (37.9-51.0); HEMOGLOBIN 13.2 g/dL (13.5-17.0); LYMPHOCYTES % (AUTO) 22.2 % (13-45); MEAN CORPUSCULAR HEMOGLOBIN 33.2 pg (27.0-33.4); MEAN CORPUSCULAR HGB CONC 34.1 g/dL (32.0-36.0); MEAN CORPUSCULAR VOLUME 97 fl (80-97); MONOCYTES % (AUTO) 11.6 % (3-13); PLATELET COUNT 218 10^3/uL (150-450); RED BLOOD COUNT 3.99 10^6/uL (4.35-5.55); RED CELL DISTRIBUTION WIDTH 12.7 % (11.5-14.0); SEGMENTED NEUTROPHILS % (AUTO) 65.6 % (42-78); TOTAL CELLS COUNTED % (AUTO) 100 %; WHITE BLOOD COUNT 11.1 10^3/uL (4.0-10.5)
[2017-09-01 20:23] LABS: ANION GAP 10 (5-19); BLOOD UREA NITROGEN 14 mg/dL (7-20); CALCIUM 9.6 mg/dL (8.4-10.2); CARBON DIOXIDE 33 mmol/L (22-30); CHLORIDE 97 mmol/L (98-107); GLUCOSE 120 mg/dL (75-110); POTASSIUM 3.7 mmol/L (3.6-5.0); SODIUM 139.5 mmol/L (137-145)
[2017-09-01 20:29] LABS: URINE AMPHETAMINES SCREEN NEGATIVE; URINE BARBITURATES SCREEN NEGATIVE; URINE BENZODIAZEPINES SCREEN NEGATIVE; URINE COCAINE SCREEN NEGATIVE; URINE MARIJUANA (THC) SCREEN NEGATIVE; URINE METHADONE SCREEN NEGATIVE; URINE PHENCYCLIDINE SCREEN NEGATIVE
--- NOTE | 2017-09-01 20:39 | ER Document Report ---
ED General - General Chief Complaint: Headache Stated Complaint: HEADACHES Time Seen by Provider: 09/01/17 18:58 Notes: Patient is a 46-year-old male with a past medical history of an intracranial abscess status post hemicraniotomy and surgical drainage 4 years ago who presents with 5 days of a headache with associated intermittent right upper extreme paresthesias. Patient reports that ever since having his surgery he has intermittent headaches that feels similar to the headache he is describing today. He describes this as a global, throbbing, aching headache. Worsened by lights, movement and sound. He has not tried anything to improve the headache. He states this is exactly the same as his previous headaches but that this headache has lasted longer than normal. He also notes intermittent paresthesias but no sensory loss or motor weakness of the right upper extremity. He likewise reports that this is a, chronic recurrent symptoms since having surgery. He just got out of residential today and came to the emergency department due to concerns about possible recurrence of an intracranial abscess. He denies any focal weakness, loss of sensation, vomiting, fever or constitutional symptoms. TRAVEL OUTSIDE OF THE [place] IN LAST 30 DAYS: No - Related Data Allergies/Adverse Reactions: aspirin [Aspirin] Allergy (Verified 09/01/17 19:07) codeine [Codeine] Allergy (Verified 09/01/17 19:07) ibuprofen Allergy (Verified 09/01/17 19:07) Past Medical History - General Information source: Patient - Social History Smoking Status: Current Every Day Smoker Chew tobacco use (# tins/day): No Frequency of alcohol use: None Drug Abuse: None Lives with: Alone Family History: Reviewed & Not Pertinent Patient has suicidal ideation: No Patient has homicidal ideation: No - Past Medical History Cardiac Medical History: Reports: Hx Hypertension Neurological Medical History: Reports: Hx Seizures Renal/ Medical History: Denies: Hx Peritoneal Dialysis Psychiatric Medical History: Reports: Hx Depression Past Surgical History: Reports: Other - Brain surgery 2014 - Immunizations Hx Diphtheria, Pertussis, Tetanus Vaccination: No Review of Systems - Review of Systems Notes: Constitutional: Negative for fever. HENT: Negative for sore throat. Eyes: Negative for visual changes. Cardiovascular: Negative for chest pain. Respiratory: Negative for shortness of breath. Gastrointestinal: Negative for abdominal pain, vomiting or diarrhea. Genitourinary: Negative for dysuria. Musculoskeletal: Negative for back pain. Skin: Negative for rash. Neurological: Positive for headache and paresthesias of the right upper extremity 10 point ROS negative except as marked above and in HPI. Physical Exam - Vital signs Vitals: Temp Pulse Resp BP Pulse Ox 98.7 F 117 H 17 141/95 H 96 09/01/17 18:52 09/01/17 18:52 09/01/17 18:52 09/01/17 18:52 09/01/17 18:52 Interpretation: Tachycardic Notes: PHYSICAL EXAMINATION: GENERAL: Well-appearing, well-nourished and in no acute distress. HEAD: Atraumatic, normocephalic. EYES: Pupils equal round and reactive to light, extraocular movements intact, sclera anicteric, conjunctiva are normal. ENT: nares patent, oropharynx clear without exudates. Moist mucous membranes. NECK: Normal range of motion, supple without lymphadenopathy LUNGS: Breath sounds clear to auscultation bilaterally and equal. No wheezes rales or rhonchi. HEART: Regular rate and rhythm without murmurs ABDOMEN: Soft, nontender, normoactive bowel sounds. No guarding, no rebound. No masses appreciated. EXTREMITIES: Normal range of motion, no pitting or edema. No cyanosis. NEUROLOGICAL: Face symmetric. Tongue protrudes midline. Extraocular motions intact. Pupils are 2 mm and equally reactive. Normal speech, normal gait. 5 out of 5 strength in both the distal and proximal upper and lower extremities bilaterally. Sensation is grossly intact throughout. Finger to nose testing normal. Pronator drift normal. PSYCH: Normal mood, normal affect. SKIN: Warm, Dry, normal turgor, no rashes or lesions noted. Course - Re-evaluation Re-evalutation: 09/01/17 20:36 Presentation of a headache that appears to be most consistent with tension versus migrainous type headache. Patient reports that he has had similar headaches ever since he had a hemicraniotomy with a resection of a brain abscess but that this headache has been more persistent than his usual headaches. He does note some associated intermittent right upper external paresthesias which she likewise notes have been intermittently present since he had brain surgery 4 years ago. Headache was not maximal in onset, patient has no focal neurologic deficits, no nuchal rigidity, vital signs within normal limits, no papilledema, and patient is overall well in appearance. Based on clinical history and examination I do not suspect an acute subarachnoid hemorrhage, dural venous sinus thrombosis, acute meningitis, or intercranial mass. However, will obtain a CT with and without contrast to evaluate for the possibility of a recurrent intracranial abscess and if this is unremarkable plan for symptomatic treatment and discharge home. 09/01/17 21:12 CT head unremarkable. Patient has had resolution of his headache. He remains any focal neurologic deficit. At this time will discharge with return precautions and follow-up recommendations. Verbal discharge instructions given a the bedside and opportunity for questions given. Medication warnings reviewed. Patient is in agreement with this plan and has verbalized understanding of return precautions and the need for primary care follow-up in the next 24-72 hours. - Vital Signs Vital signs: Temp Pulse Resp BP Pulse Ox 98.2 F 96 16 120/76 98 09/01/17 21:48 09/01/17 21:51 09/01/17 21:51 09/01/17 21:51 09/01/17 21:51 - Laboratory Result Diagrams: 09/01/17 19:44 09/01/17 19:44 Laboratory results interpreted by me: 09/01/17 09/01/17 19:44 19:44 WBC 11.1 H RBC 3.99 L Hgb 13.2 L Chloride 97 L Carbon Dioxide 33 H Glucose 120 H - Diagnostic Test Radiology reviewed: Image reviewed, Reports reviewed Radiology results interpreted by me: 09/01/17 20:37 CT head: No evidence of intracranial mass or bleed Discharge - Discharge Clinical Impression: Paresthesia of right upper extremity Headache Qualifiers: Headache type: unspecified Headache chronicity pattern: episodic headache Intractability: not intractable Qualified Code(s): R51 - Headache Condition: Good Disposition: HOME, SELF-CARE Additional Instructions: You have been seen in the Emergency Department (ED) for a headache. Please use Tylenol (acetaminophen) or Motrin (ibuprofen) as needed for symptoms, but only as written on the box. CT scan of your head is normal today and does not indicate a recurrence of an abscess. As we have discussed, please follow up with your primary care doctor as soon as possible regarding today's ED visit and your headache symptoms. Call your doctor or return to the ED if you have a worsening headache, sudden and severe headache, confusion, slurred speech, facial droop, weakness or numbness in any arm or leg, extreme fatigue, or other symptoms that concern you.
--- NOTE | 2017-09-01 21:04 | RADIOLOGY REPORT (SQ) ---
EXAM DESCRIPTION: CT HEAD COMBO COMPLETED DATE/TIME: 09/01/2017 8:40 pm REASON FOR STUDY: [place] R arm tingling, hx brain abscess . Headache for 5 days. History of craniotom y in 2013. History of seizures. COMPARISON: Noncontrast CT head 08/19/2014. TECHNIQUE: Axial images acquired through the brain without and with intravenous contrast. Images re viewed with bone, brain and subdural windows. Images stored on PACS. All CT scanners at this facility use dose modulation, iterative reconstruction, and/or weight based d osing when appropriate to reduce radiation dose to as low as reasonably achievable (ALARA). [facility]: Dose Right [facility]: CareDose [facility]: Dose Right [facility]: Teradose 4D [facility]: ThreatMetrix CONTRAST TYPE AND DOSE: 50 mL Isovue 370- low osmolar. RENAL FUNCTION: None required. The patient is less than 50 years old. RADIATION DOSE: . LIMITATIONS: None. FINDINGS: VENTRICLES: Normal size and contour. CEREBRUM: No mass effect. No hemorrhage. No midline shift. Normal ruth/white matter differentiatio n. No evidence for acute territorial infarction. Encephalomalacia at the left parietal lobe, at the site of prior surgery. CEREBELLUM: No mass effect. No hemorrhage. No alteration of density. No evidence for acute infarct ion. EXTRAAXIAL SPACES: No fluid collections. ORBITS AND GLOBE: Symmetrical contour of the globes. CALVARIUM: No depressed skull fracture. Craniotomy changes at the left parietal bone. PARANASAL SINUSES: No air-fluid level. SOFT TISSUES: No hematoma. OTHER: No enhancing mass or fluid collection is identified. IMPRESSION: No acute intracranial hemorrhage or acute territorial infarct. No enhancing mass or flu id collection. Postsurgical changes with encephalomalacia at the left frontal lobe. EVIDENCE OF ACUTE STROKE: NO. TECHNICAL DOCUMENTATION: JOB ID: [id number] Quality ID # [id number]: Final reports with documentation of one or more dose reduction techniques (e.g., Au tomated exposure control, adjustment of the mA and/or kV according to patient size, use of iterative reconstruction technique) 2010 [employer]- All Rights Reserved Reading location - IP/workstation name: [email or web address]
[2017-09-01] MEDS ORDERED: DIPHENHYDRAMINE HCL 50 MG/ML VIAL IV ONE (21:12)
[2017-09-01 21:51] VITALS: BP 120/76
== END 2017-09-01 21:47 | disposition home or self-care (01) ==
LOC: ER 18:48
DX: R51 Headache (principal); R20.2 Paresthesia of skin; F17.200 Nicotine dependence, unspecified, uncomplicated; I10 Essential (primary) hypertension; Z88.6 Allergy status to analgesic agent
CPT/HCPCS: 99284; 96361; 96374; 96375; 36415; 87040; 85025; 80048; 80307; 70470; J1200; J0780; J7120

== ENCOUNTER 2018-04-02 19:45 | Emergency (ER) | payer SELFPAY ==
[2018-04-02] MEDS ORDERED: NORMAL SALINE 1000 ML 1,000 ML IV PRN (20:08)
--- NOTE | 2018-04-02 20:09 | ER Document Report ---
ED General - General Stated Complaint: ALTERED MENTAL STATUS Time Seen by Provider: 04/02/18 20:06 Notes: 47-year-old male to the emergency department for evaluation of altered mental status. Patient was found passed out at [facility]. EMS arrived. Patient admits to being intoxicated but also has a history of seizures. History of brain surgery. Patient has been seen in the multiple occasions here. States that he was not trying to harm himself or anyone else. Denies any pain at this time. TRAVEL OUTSIDE OF THE U.S. IN LAST 30 DAYS: No - HPI Onset: Just prior to arrival Quality of pain: No pain - Related Data Allergies/Adverse Reactions: aspirin [Aspirin] Allergy (Verified 09/01/17 19:07) codeine [Codeine] Allergy (Verified 09/01/17 19:07) ibuprofen Allergy (Verified 09/01/17 19:07) Past Medical History - General Information source: Patient, Emergency Med Personnel - Social History Smoking Status: Current Every Day Smoker Frequency of alcohol use: Occasional Drug Abuse: None Lives with: Alone Family History: Reviewed & Not Pertinent - Past Medical History Cardiac Medical History: Reports: Hx Hypertension Neurological Medical History: Reports: Hx Seizures Renal/ Medical History: Denies: Hx Peritoneal Dialysis Psychiatric Medical History: Reports: Hx Depression Past Surgical History: Reports: Other - Brain surgery 2013 - Immunizations Hx Diphtheria, Pertussis, Tetanus Vaccination: No Review of Systems - Review of Systems Notes: Constitutional: denies: Chills, Diaphoresis, Fever, Malaise, Weakness EENT: denies: Eye discharge, Blurred vision, Tearing, Double vision, Nose congestion, Nose discharge, Throat swelling, Mouth pain Cardiovascular: denies: Palpitations, Heart racing, Orthopnea, Dyspnea, Chest pain Respiratory: denies: Cough, Hurts to breathe, Wheezing, Shortness of breath Gastrointestinal: denies: Abdominal pain, Diarrhea, Nausea, Vomiting, Black stools, bright red blood in stool Genitourinary: denies: Burning, Dysuria, Discharge, Frequency, Flank pain, Hematuria Musculoskeletal: denies: Joint pain, Joint swelling, Muscle pain, Muscle stiffness, back pain Hematologic/Lymphatic: denies: Anemia, Easy bleeding, Easy bruising, Blood clots Neurological/Psychological: denies: Confusion, Dementia, Depression, Loss of consciousness Skin: No lesions, no masses, no skin breakdown, no abscesses Physical Exam - Vital signs Vitals: Temp Pulse Resp BP Pulse Ox 97.9 F 79 18 128/89 H 97 04/02/18 20:15 04/02/18 20:15 04/02/18 20:15 04/02/18 20:15 04/02/18 20:15 Interpretation: Normal - Notes Notes: Strong smell of alcohol on breath - General General appearance: Appears well, Alert, Other - Intoxicated in appearance. - HEENT Head: Normocephalic, Atraumatic, Other - No signs of cranial trauma.. No: Abrasions, Duval's sign, Ecchymosis, Open wounds, Racoon's eyes, Tenderness Eyes: Normal Pupils: PERRL Tympanic membrane: Normal. No: Hemotympanum Sinus: Normal Pharynx: Normal Neck: Normal - Respiratory Respiratory status: No respiratory distress Chest status: Nontender Breath sounds: Normal Chest palpation: Normal - Cardiovascular Rhythm: Regular Heart sounds: Normal auscultation Murmur: No - Abdominal Inspection: Normal Distension: No distension Bowel sounds: Normal Tenderness: Nontender Organomegaly: No organomegaly - Back Back: Normal, Nontender - Extremities General upper extremity: Normal inspection, Nontender, Normal color, Normal ROM , Normal temperature General lower extremity: Normal inspection, Nontender, Normal color, Normal ROM , Normal temperature. No: Justen's sign - Neurological Neuro grossly intact: Yes Cognition: Normal Orientation: AAOx4, Disoriented to time [place] Coma Scale Eye Opening: Spontaneous [place] Coma Scale Verbal: Oriented [place] Coma Scale Motor: Obeys Commands [place] Coma Scale Total: 15 Speech: Normal Motor strength normal: LUE, RUE, LLE, RLE Sensory: Normal Notes: Appears under the influence of substances such as alcohol or drugs. - Psychological Associated symptoms: Normal affect, Normal mood, Other - Intoxicated - Skin Skin Temperature: Warm Skin Moisture: Dry Skin Color: Normal Course - Re-evaluation Re-evalutation: 04/02/18 21:03 At this time patient clinically intoxicated. Getting alcohol level. IV fluids and reassess. 04/02/18 23:41 Laboratory 04/02/18 04/02/18 20:11 21:29 Phenytoin < 3.0 L Serum Alcohol 348 H* Patient has not received 2 L of fluid. Was sleeping. Alcohol level 348. When patient is clinically sober will DC. - Vital Signs Vital signs: Temp Pulse Resp BP Pulse Ox 97.9 F 79 18 128/89 H 97 04/02/18 20:15 04/02/18 20:15 04/02/18 20:15 04/02/18 20:15 04/02/18 20:15 - Laboratory Laboratory results interpreted by me: 04/02/18 04/02/18 20:11 21:29 Phenytoin < 3.0 L Serum Alcohol 348 H* Discharge - Discharge Clinical Impression: Alcohol intoxication Qualifiers: Complication of substance-induced condition: uncomplicated Qualified Code(s): F10.920 - Alcohol use, unspecified with intoxication, uncomplicated Condition: Good Disposition: HOME, SELF-CARE Instructions: Acute Alcohol Intoxication ([facility])
[2018-04-03 06:17] VITALS: BP 133/75
== END 2018-04-03 06:15 | disposition home or self-care (01) ==
LOC: ER 19:45
DX: F10.920 Alcohol use, unspecified with intoxication, uncomplicated (principal); R41.82 Altered mental status, unspecified; F17.200 Nicotine dependence, unspecified, uncomplicated; I10 Essential (primary) hypertension
CPT/HCPCS: 99284; 96360; 96361; 36415; 80307; 80185; J7030

== ENCOUNTER 2018-04-03 21:26 | Emergency (ER) | payer SELFPAY ==
--- NOTE | 2018-04-03 22:11 | ER Document Report ---
ED Medical Screen (RME) - General Chief Complaint: Suicidal Ideation Stated Complaint: SUCIDAL IDEATIONS Time Seen by Provider: 04/03/18 22:08 Notes: 47-year-old male with a history of alcohol abuse, depression, suicide attempts, brain tumor with removal, and seizure disorder with chief complaint of suicidal ideations. States he has been thinking about shooting himself. States he drinks daily and has had alcohol withdrawal at times, states he did drink alcohol just prior to arrival. States he is tired of it all. TRAVEL OUTSIDE OF THE U.S. IN LAST 30 DAYS: No - Related Data Allergies/Adverse Reactions: aspirin [Aspirin] Allergy (Verified 09/01/17 19:07) codeine [Codeine] Allergy (Verified 09/01/17 19:07) ibuprofen Allergy (Verified 09/01/17 19:07) Past Medical History - Past Medical History Cardiac Medical History: Reports: Hx Hypertension Neurological Medical History: Reports: Hx Seizures Renal/ Medical History: Denies: Hx Peritoneal Dialysis Psychiatric Medical History: Reports: Hx Depression Past Surgical History: Reports: Other - Brain surgery 2013 - Immunizations Hx Diphtheria, Pertussis, Tetanus Vaccination: No Physical Exam - Vital signs Vitals: Temp Pulse Resp BP Pulse Ox 98.8 F 103 H 16 120/76 96 04/03/18 21:49 04/03/18 21:49 04/03/18 21:49 04/03/18 21:49 04/03/18 21:49 - General General appearance: Other - Disheveled but alert - Neurological Orientation: AAOx4 [place] Coma Scale Eye Opening: Spontaneous [place] Coma Scale Verbal: Oriented [place] Coma Scale Motor: Obeys Commands [place]ayn[place] Coma Scale Total: 15 Cerebellar coordination: No: Gait ataxia Course - Re-evaluation Re-evalutation: Patient ambulates without difficulty, speaks clearly, not tremulous or tachycardic on my evaluation I have greeted and performed a rapid initial assessment of this patient. A comprehensive ED assessment and evaluation of the patient, analysis of test results and completion of the medical decision making process will be conducted by additional ED providers. - Vital Signs Vital signs: Temp Pulse Resp BP Pulse Ox 98.8 F 103 H 16 120/76 96 04/03/18 21:49 04/03/18 21:49 04/03/18 21:49 04/03/18 21:49 04/03/18 21:49
[2018-04-03 23:38] LABS: ABSOLUTE BASOPHILS # (AUTO) 0.1 10^3/uL (0.0-0.2); ABSOLUTE EOSINOPHILS # (AUTO) 0.9 10^3/uL (0.0-0.6); ABSOLUTE LYMPHOCYTES (AUTO) 2.9 10^3/uL (0.5-4.7); ABSOLUTE MONOCYTES (AUTO) 0.8 10^3/uL (0.1-1.4); ABSOLUTE NEUT (AUTO) 3.4 10^3/uL (1.7-8.2); BASOPHILS % (AUTO) 1.2 % (0-2); EOSINOPHILS % (AUTO) 10.8 % (0-6); HEMATOCRIT 40.1 % (37.9-51.0); HEMOGLOBIN 13.9 g/dL (13.5-17.0); MEAN CORPUSCULAR HEMOGLOBIN 36.5 pg (27.0-33.4); MEAN CORPUSCULAR HGB CONC 34.7 g/dL (32.0-36.0); MEAN CORPUSCULAR VOLUME 105 fl (80-97); MONOCYTES % (AUTO) 9.7 % (3-13); PLATELET COUNT 307 10^3/uL (150-450); RED BLOOD COUNT 3.82 10^6/uL (4.35-5.55); RED CELL DISTRIBUTION WIDTH 14.6 % (11.5-14.0); SEGMENTED NEUTROPHILS % (AUTO) 42.3 % (42-78); TOTAL CELLS COUNTED % (AUTO) 100 %; WHITE BLOOD COUNT 7.9 10^3/uL (4.0-10.5)
[2018-04-03 23:56] LABS: ALANINE AMINOTRANSFERASE 25 U/L (21-72); ALBUMIN 4.4 g/dL (3.5-5.0); ALCOHOL 232 mg/dL (NONE DETECTED); ALKALINE PHOSPHATASE 74 U/L (38-126); ANION GAP 14 (5-19); ASPARTATE AMINO TRANSFERASE 29 U/L (17-59); BILIRUBIN,DIRECT 0.1 mg/dL (0.0-0.4); BILIRUBIN,TOTAL 0.1 mg/dL (0.2-1.3); BLOOD UREA NITROGEN 18 mg/dL (7-20); CALCIUM 9.2 mg/dL (8.4-10.2); CARBON DIOXIDE 30 mmol/L (22-30); CHLORIDE 98 mmol/L (98-107); GLUCOSE 105 mg/dL (75-110); POTASSIUM 4.6 mmol/L (3.6-5.0); SODIUM 142.4 mmol/L (137-145); TOTAL PROTEIN 7.1 g/dL (6.3-8.2)
[2018-04-03 23:57] LABS: ACETAMINOPHEN < 10 ug/mL (10-30); SALICYLATE < 1.0 mg/dL (2.0-20.0)
[2018-04-04 02:13] LABS: APPEARANCE,URINE CLEAR; BILIRUBIN,URINE NEGATIVE (NEGATIVE); COLOR,URINE YELLOW; GLUCOSE, URINE NEGATIVE (NEGATIVE); KETONES,URINE NEGATIVE (NEGATIVE); LEUKOCYTE ESTERASE,URINE NEGATIVE (NEGATIVE); NITRITE,URINE NEGATIVE (NEGATIVE); PROTEIN,URINE NEGATIVE (NEGATIVE); URINE SPECIFIC GRAVITY 1.024; UROBILINOGEN,URINE NEGATIVE mg/dL (<2.0)
[2018-04-04 02:30] LABS: URINE AMPHETAMINES SCREEN NEGATIVE; URINE BARBITURATES SCREEN NEGATIVE; URINE BENZODIAZEPINES SCREEN NEGATIVE; URINE COCAINE SCREEN NEGATIVE; URINE MARIJUANA (THC) SCREEN NEGATIVE; URINE METHADONE SCREEN NEGATIVE; URINE PHENCYCLIDINE SCREEN NEGATIVE
[2018-04-04] MEDS ORDERED: DIAZEPAM 5 MG TABLET PO ONE ×2 (03:22→05:35)
--- NOTE | 2018-04-04 06:25 | ER Document Report ---
ED General - General Chief Complaint: Suicidal Ideation Stated Complaint: SUICIDAL IDEATIONS Time Seen by Provider: 04/03/18 22:08 Notes: Patient is a pleasant 47-year-old male who presents with complaint of thoughts of suicide. He says been depressed for a while but became worse around the holiday season. He does admit to drinking alcohol. He says he has been drinking every day for last week. No recent vomiting. He says sometimes he feels as if he is getting withdrawal. He is unsure if he is getting withdrawal now but says he feels as if he might. No vomiting. No other complaints at this time. He says he did consider suicide tonight but did not make any attempts. He says he does have a gun at home which she would use if he did decide to commit suicide. He was on depression medications in the past. He said they did not really help and therefore he stopped taking them. He is currently on Dilantin for seizures. After he arrived we told him he could take his nighttime Dilantin dose. Denies recent seizures. TRAVEL OUTSIDE OF THE [place] IN LAST 30 DAYS: No - Related Data Allergies/Adverse Reactions: aspirin [Aspirin] Allergy (Verified 09/01/17 19:07) codeine [Codeine] Allergy (Verified 09/01/17 19:07) ibuprofen Allergy (Verified 09/01/17 19:07) Past Medical History - Social History Smoking Status: Current Every Day Smoker Chew tobacco use (# tins/day): No Frequency of alcohol use: Heavy Drug Abuse: None Family History: Reviewed & Not Pertinent Patient has suicidal ideation: Yes Patient has homicidal ideation: No - Past Medical History Cardiac Medical History: Reports: Hx Hypertension Neurological Medical History: Reports: Hx Seizures Renal/ Medical History: Denies: Hx Peritoneal Dialysis Psychiatric Medical History: Reports: Hx Depression Past Surgical History: Reports: Other - Brain surgery 2014 - Immunizations Hx Diphtheria, Pertussis, Tetanus Vaccination: No Review of Systems - Review of Systems Notes: My Normal Review Basic REVIEW OF SYSTEMS: CONSTITUTIONAL : Denies fever, chills, or sweats. Denies recent illness. EENT: Denies eye, ear, throat, or mouth pain or symptoms. Denies nasal or sinus congestion. CARDIOVASCULAR: Denies chest pain. RESPIRATORY: Denies cough, cold, or chest congestion. Denies shortness of breath, difficulty breathing, or wheezing. GASTROINTESTINAL: Denies abdominal pain. Denies nausea, vomiting, or diarrhea. MUSCULOSKELETAL: Denies neck or back pain or joint pain or swelling. SKIN: Denies rash or skin lesions. NEUROLOGICAL: Denies altered mental status or loss of consciousness. Denies headache. Denies weakness or paralysis or loss of use of either side. Denies problems with gait or speech. Denies sensory or motor loss. PSYCHIATRIC: Depression. Suicidal ideations. ALL OTHER SYSTEMS REVIEWED AND NEGATIVE. Physical Exam - Vital signs Vitals: Temp Pulse Resp BP Pulse Ox 98.8 F 103 H 16 120/76 96 04/03/18 21:49 04/03/18 21:49 04/03/18 21:49 04/03/18 21:49 04/03/18 21:49 - Notes Notes: General Appearance: Well nourished, alert, cooperative, no acute distress, no obvious discomfort. Vitals: reviewed, See vital signs table. Head: no swelling or tenderness to the head Eyes: PERRL, EOMI, Conjuctiva clear Mouth: No decreasd moisture Throat: No tonsillar inflammation, No airway obstruction Lungs: No wheezing, No rales, No rhonci, No accessory muscle use, good air exchange bilaterally. Heart: Normal rate, Regular rythm, No murmur, no rub Abdomen: Normal BS, soft, No rigidity, No abdominal tenderness, No guarding, no rebound, no abdominal masses, no organomegaly Extremities: good pulses in all extremities, no edema. Skin: warm, dry, appropriate color, no rash Neuro: speech clear, oriented x 3, normal affect, responds appropriately to questions. Course - Re-evaluation Re-evalutation: 04/04/18 06:29 Patient has not had any signs of alcohol withdrawal thus far. He is doing well. He is currently stable for mental health evaluation however will continue to have to monitor him for any signs of alcohol withdrawal while he is here in the hospital. Dictation of this chart was performed using voice recognition software; therefore, there may be some unintended grammatical errors. - Vital Signs Vital signs: Temp Pulse Resp BP Pulse Ox 98.4 F 103 H 15 100/65 96 04/04/18 06:01 04/03/18 21:49 04/04/18 06:01 04/04/18 06:01 04/04/18 06:01 - Laboratory Result Diagrams: 04/03/18 23:21 04/03/18 23:21 Laboratory results interpreted by me: 04/03/18 04/03/18 04/03/18 23:21 23:21 23:21 RBC 3.82 L MCV 105 H MCH 36.5 H RDW 14.6 H Eosinophils % 10.8 H Absolute Eosinophils 0.9 H Total Bilirubin 0.1 L Salicylates < 1.0 L Acetaminophen < 10 L Phenytoin < 3.0 L Discharge - Discharge Clinical Impression: Suicidal ideation Alcohol intoxication Qualifiers: Complication of substance-induced condition: uncomplicated Qualified Code(s): F10.920 - Alcohol use, unspecified with intoxication, uncomplicated Depression Qualifiers: Depression Type: unspecified Qualified Code(s): F32.9 - Major depressive disorder, single episode, unspecified
[2018-04-04] MEDS ORDERED: PHENYTOIN SODIUM INJ/PF 250 MG/5 ML SDV IV ONE (09:21)
--- NOTE | 2018-04-04 09:22 | ER Document Report ---
Doctor's Note Notes: 04/04/18 09:21 47-year-old male with past medical history as recorded who presents today with some alcohol intoxication and suicidal ideations. Patient does have a gun at home. He did not take his last dose of Dilantin. History of alcohol withdrawal as well as a separate diagnosis of seizures. Labs as recorded. Vital signs are stable. I have loaded the patient with a gram of Dilantin. Awaiting psychiatric evaluation. Blood alcohol level as recorded. 04/04/18 18:07 Psychology team is seen and evaluated the patient. They have set up for the patient to be transferred tomorrow morning to a rehabilitation facility. Patient is stating the only place he has to sleep tonight is at his friend's house, the person who supposedly has begun. He states that this friend does not have a phone so he would after walk to his house upon discharge. He is asking to stay overnight. I believe this is a reasonable option. We have loaded the patient with Dilantin this morning.
--- NOTE | 2018-04-04 10:04 | EKG REPORT ---
SEVERITY:- NORMAL ECG - SINUS RHYTHM : Confirmed by: Sandra Patrick MD 04-Apr-2018 10:02:41
[2018-04-04] MEDS ORDERED: LORAZEPAM 1 MG TABLET PO ONE (10:10)
--- NOTE | 2018-04-04 17:08 | PSYCHOLOGICAL NOTE ---
Psych Note - Psych Note Date seen by psych provider: 04/04/18 Time seen by psych provider: 07:50 Psych Note: Reason for Consult: Suicidal ideation and substance abuse pt reports that he has been having suicidal thoughts of shooting himself. Pt reports he has access to a gun at a friends. PT reports he has attempted suicide by cutting his wrist in the past. Pt reports drinking heavily and having "too many four locos to count" last night. Pt requests help to get sober and be in a safe place because he wants to . Patient reports that his friend brought him to [facility] ED because he wanted to hurt himself. States he has been feeling this way for the past week SD: "Everything in life is against me right now life is just not good for me." He reports that he has been drinking every day this week; approximately a 12 pack a day. He reports he does not have a job however states he does have a currently at home to live in. He reports that he has been sober for a few years back. He identified his sister as his resource that helped him obtain and maintain sobriety however she moved to [place]. He went to [place] for approximately 1 month however had to leave for "family reasons." He states his mother became very ill and ended up passing 2 years later. He reports that he has been in detox multiple times however does not have an outpatient provider is not been any medications for psychiatric needs. He reports that he has a plan of shooting himself however he does not own a weapon but states his friend does. He denies living with his friend and states that the gun is at his friend's home. When asked for collaterals he states that he is unable to provide any because his phone has broken and he does not have any phone numbers memorized. Patient states he has a history of depression anxiety and substance abuse. Patient is alert and orientated to person, place, time and circumstance. Mood is dysphoric with flat affect. Patient endorses chronic passive suicidal ideation ie no means or intent (clinician notes patient reports access to gun however this gun is not in his possession is in the multi needle machine operator's possession. he does not live in the same home as the weapon). Clinician notes patient has been seen multiple times since 2012 by the behavioral health team both here at [facility] and [facility] which the patient reports same plan. Patient denies homicidal ideation. Delusions are absent behaviors congruent with an intact reality based presentation I organized and linear thought process. Eye contact is fair. Conversational speech was normal rate, tone and prosody. Intellectual abilities appear to be within the average range. Attention and concentration are fair. Insight, judgment, impulse control are fair. No medication recommendations at this time 303.90 (F10.20) alcohol abuse; severe 296.30 (F 33.9) Major Depressive Disorder; recurrent episode; unspecified per history Depression\\plan: Patient reports passive suicidal ideation i.e. no plans means or intent. while patient reports a plan of shooting himself clinician notes patient does not own a weapon or have access to one. Patient states that his friend owns a weapon; they do not live in the same home. Clinician notes this patient has been seen on multiple occasions in both [facility] and [facility] since 2013 by this behavioral health team. Patient's current presentation and concerns with suicidal ideation is chronic. Clinician notes patient's plan has always been the same and reports during each visit he does not own a gun. Patient has been in touch with the [facility] and done phone interview. While patient briefly had a bed available today he was unable to confirm transportation to the facility so the [facility] has reported that he can call back tomorrow morning. Patient is recommended to follow-up with integrated family services upon discharge to conduct interview for continued assistance in substance abuse treatment. Patient reports he is in agreement with this plan smiles and engages with clinician. Dr. Mcdonald was consulted and the care management this patient; attending physician reports patient will stay overnight for possible bed in the morning with a [facility].
[2018-04-04] MEDS ORDERED: LORAZEPAM 1 MG TABLET PO STA (18:06)
[2018-04-05] MEDS ORDERED: DIAZEPAM 5 MG TABLET PO ONE (00:34)
--- NOTE | 2018-04-05 09:26 | ER Document Report ---
Doctor's Note Notes: 04/05/18 09:26 Pt has been accepted and will be transported to the [facility] this am. VSS. Pt has no complaints.
[2018-04-05] MEDS ORDERED: LORAZEPAM 1 MG TABLET PO ONE (10:15)
[2018-04-05 10:35] VITALS: BP 169/95
--- NOTE | 2018-04-05 15:12 | PSYCHOLOGICAL NOTE ---
Psych Note - Psych Note Date seen by psych provider: 04/05/18 Time seen by psych provider: 07:55 Psych Note: Reason for Consult: Suicidal ideation and substance abuse pt reports that he has been having suicidal thoughts of shooting himself. Pt reports he has access to a gun at a friends. PT reports he has attempted suicide by cutting his wrist in the past. Pt reports drinking heavily and having "too many four locos to count" last night. Pt requests help to get sober and be in a safe place because he wants to . Checking conducted with patient Patient discloses optimism and hoping that he will receive a bed with [facility] today. He reports that he knows he has chronic passive suicidal ideation and feels that the best course of action will be sobriety. He states that after detox he would like to go to long-term treatment facility. Behavioral health team contacted [facility] and confirm the patient has a bed today. [facility] provided voucher for patient to take a cab to the [facility]. No medication recommendations at this time 303.90 (F10.20) alcohol abuse; severe 296.30 (F 33.9) Major Depressive Disorder; recurrent episode; unspecified per history Depression\\plan: Patient is cleared from acute psychiatric services. Patient reports passive suicidal ideation i.e. no plans means or intent. while patient reports a plan of shooting himself clinician notes patient does not own a weapon or have access to one. Patient states that his friend owns a weapon; they do not live in the same home. Clinician notes this patient has been seen on multiple occasions in both [facility] and [facility] since 2012 by this behavioral health team. Patient's current presentation and concerns with suicidal ideation is chronic. Clinician notes patient's plan has always been the same and reports during each visit he does not own a gun. Patient conducted a phone interview yesterday. Today with [facility] confirms the patient has a bed. [facility] provided a cab voucher for the patient to go to the [facility]. Patient reports he is in agreement with this plan smiles and engages with clinician. Patient is recommended to follow-up with [facility] either long-term rehab or outpatient services upon completion of detox. Dr. Mcdonald was consulted and the care management this patient.
== END 2018-04-05 10:49 | disposition home or self-care (01) ==
LOC: ER 21:26
DX: F32.9 Major depressive disorder, single episode, unspecified (principal); F10.120 Alcohol abuse with intoxication, uncomplicated; R45.851 Suicidal ideations; F41.9 Anxiety disorder, unspecified; R25.1 Tremor, unspecified; F17.200 Nicotine dependence, unspecified, uncomplicated; I10 Essential (primary) hypertension; R56.9 Unspecified convulsions; Z79.899 Other long term (current) drug therapy; Z88.6 Allergy status to analgesic agent; Z88.5 Allergy status to narcotic agent
CPT/HCPCS: 93005; 99285; 96374; 36415; 80307 ×4; 80185; 85025; 80053; 81001; 93010; J1165